=== PATIENT | female | born 2000 | race Caucasian/White ===

== ENCOUNTER 2020-10-14 06:14 | Emergency (ER) | payer BC, OTHER, SELFPAY ==
[2020-10-14] MEDS ORDERED: Fluorescein Opthalmic Strip ONE (06:34)
[2020-10-14] MEDS ORDERED: Tetracaine 0.5% PF 4 ML BOT ONE (06:35)
== END 2020-10-14 06:45 | disposition home or self-care (01) ==
LOC: CSHERS 06:14
DX: H10.9 Unspecified conjunctivitis (principal)
CPT/HCPCS: 99283